=== PATIENT | male | born 1950 | race Caucasian/White ===

== ENCOUNTER 2022-06-30 16:06 | Inpatient (IN) | payer MEDICARE, BC ==
[~2022-06-30] VITALS: Ht 165.1 cm; Wt 64.1 kg
--- NOTE | 2022-06-30 17:00 | NUR ---
MOVE SHEET SUBMITTED.
[2022-06-30 17:11] LABS: BASOPHILS # (AUTO) 0.1 K/uL (0.0-0.2); BASOPHILS % (AUTO) 0.6 % (0.0-2.0); EOSINOPHILS % (AUTO) 5.9 % (0.0-6.0); HEMATOCRIT 33 % (39-51); LYMPHOCYTES # (AUTO) 0.7 K/uL (0.8-4.8); LYMPHOCYTES % (AUTO) 6.4 % (20.0-44.0); MEAN CORPUSCULAR HGB CONC 33 g/dl (31.0-36.0); MEAN CORPUSCULAR VOLUME 94 fL (80-96); MONOCYTES # (AUTO) 0.7 K/uL (0.1-1.30); MONOCYTES % (AUTO) 6.5 % (2.0-12.0); NEUTROPHILS # (AUTO) 8.7 K/uL (1.8-8.9); NEUTROPHILS % (AUTO) 80.6 % (43.0-81.0); PLATELET COUNT (AUTO) 424 K/uL (150-450); RED BLOOD CELL COUNT(AUTO) 3.55 MIL/uL (4.5-6.0); WHITE BLOOD COUNT (AUTO) 10.7 K/uL (4.3-11.0)
--- NOTE | 2022-06-30 17:23 | NUR ---
COVID SWAB TAKEN AND SENT TO THE LAB
[2022-06-30] MEDS ORDERED: SPIR25TA6 JT (17:50)
[2022-06-30] MEDS ORDERED: MULT-24 JT (17:50)
[2022-06-30] MEDS ORDERED: ATOR40TA JT (17:50)
[2022-06-30] MEDS ORDERED: BUME1TAB34 JT (17:50)
[2022-06-30] MEDS ORDERED: ASPI-1169 JT (17:50)
[2022-06-30] MEDS ORDERED: BISA10SU11 RC (17:50)
[2022-06-30] MEDS ORDERED: SERT50TA JT (17:50)
[2022-06-30] MEDS ORDERED: LAMO25TA10 JT (17:50)
[2022-06-30] MEDS ORDERED: POTA20TA29 JT (17:50)
[2022-06-30] MEDS ORDERED: IPRA12.9 IH (17:50)
[2022-06-30] MEDS ORDERED: LANS30CA56 JT (17:50)
[2022-06-30] MEDS ORDERED: CALC500T52 JT (17:50)
[2022-06-30] MEDS ORDERED: CHLO473M5 MM (17:50)
[2022-06-30] MEDS ORDERED: DOCU-141 JT (17:50)
[2022-06-30] MEDS ORDERED: ACET-868 JT (17:50)
[2022-06-30] MEDS ORDERED: CYAN250T3 JT (17:50)
[2022-06-30] MEDS ORDERED: GABA-532 JT (17:50)
[2022-06-30] MEDS ORDERED: DOXA2TAB2 JT (17:50)
[2022-06-30] MEDS ORDERED: LEVO150T8 JT (17:50)
[2022-06-30] MEDS ORDERED: MAGN400T26 JT (17:50)
[2022-06-30] MEDS ORDERED: ALLO300T2 JT (17:50)
[2022-06-30] MEDS ORDERED: LOPE2CAP JT (17:50)
[2022-06-30] MEDS ORDERED: THIA100T74 JT (17:50)
[2022-06-30 18:21] LABS: ALBUMIN 2.7 g/dL (3.4-5.0); BILIRUBIN,DIRECT 0.1 mg/dL (0.0-0.2); BILIRUBIN,TOTAL 0.2 mg/dL (0.2-1.0); CALCIUM, SERUM 9.3 mg/dL (8.5-10.1); CREATININE 1.2 mg/dL (0.6-1.3); POTASSIUM 3.6 mmol/L (3.5-5.1); TOTAL PROTEIN, SERUM 7.2 g/dL (6.4-8.2)
--- NOTE | 2022-06-30 19:08 | NUR ---
[facility] CALLED MATERIALS HANDLING COORDINATOR PAGED.
[2022-06-30] MEDS ORDERED: ACETAMINOPHEN 325 MG TABLET PO PRN ×2 (19:30→20:00)
[2022-06-30] MEDS ORDERED: MAGNESIUM HYDROXIDE 30 ML UDC PO PRN (19:30)
[2022-06-30] MEDS ORDERED: ONDANSETRON HCL/PF 4 MG/2 ML VIAL IVP PRN (19:30)
[2022-06-30] MEDS ORDERED: Z GUARD REMEDY 4 OZ OINT TP PRN (19:30)
[2022-06-30] MEDS ORDERED: MAG HYDROX/AL HYDROX/SIMETH 30 ML UDC PO PRN (19:30)
[2022-06-30] MEDS ORDERED: BISACODYL SUPP (10 MG) 10 MG/SUPP.RECT SUPP.RECT RC PRN (20:00)
--- NOTE | 2022-06-30 20:16 | NUR ---
CALLED FOR REPORT, RN NOT READY
--- NOTE | 2022-06-30 20:32 | NUR ---
Robert lopez in ED - 06/30/22 at 2033 by IGNACIO TRANSFERRED TO [id number] UNDER ACLS
--- NOTE | 2022-06-30 20:44 | NUR ---
REPORT GIVEN TO CHRISTIANE MENDOZA FOR LOPEZ
[2022-06-30] MEDS ORDERED: ALBUTEROL FS 2.5 MG/3 ML VIAL.NEB ONE (20:51)
[2022-06-30] MEDS ORDERED: ALBUTEROL FS 2.5 MG/3 ML VIAL.NEB NEB ONE (21:00)
[2022-06-30] MEDS ORDERED: LOPERAMIDE HCL (2 MG CAP) 2 MG CAPSULE GT PRN (21:00)
[2022-06-30] MEDS: GABAPENTIN 100 MG CAPSULE PEG SCH (21:00)
[2022-06-30 21:13] VITALS: BP 127/89
--- NOTE | 2022-06-30 21:13 | NUR ---
PATIENT TRANSFERRED TO [facility]
[2022-06-30] MEDS: ATORVASTATIN 40 MG TABLET PEG SCH (22:00)
[2022-06-30] MEDS: DOXAZOSIN MESYLATE (1 MG) 1 MG TABLET JT SCH (22:00)
--- NOTE | 2022-06-30 22:00 | NUR ---
TRUCK SERVICE TECHNICIAN NOTES RECEIVED PATIENT FROM ER VIA GURNEY ACCOMPANIED BY RN AND ENTRY LEVEL. ON 4LPM NASAL CANNULA, SATURATING WELL. WITH TRACHEOSTOMY PORTEX #7. NO IV ACCESS. DISLODGED J-TUBE NOTED. NPO INCLUDING MEDS. INFORMED LASER BEAM MACHINE OPERATOR DOCTOR TO SWITCH MEDS TO IV ROUTE. CALLED PHARMACIST. RE-INSERTED IV ACCESS AT RIGHT FOREARM #20, PATENT, INFUSING D5 1/2NS@ 50ML/H. FOR GI CONSULT TODAY. ORIENTED TO ROOM SET-UP. SAFETY MEASURES INITIATED. WILL CONT TO MONITOR.
--- NOTE | 2022-06-30 23:27 | NUR ---
RT NOTE PT PLACED ON TRACH COLLAR WITH COOL AEROSOL @ 28% ON 5LPM. PMV IS IN PLACE. NO RESPIRATORY DISTRESS NOTED AT THIS TIME. RN NOTIFIED.
--- NOTE | 2022-07-01 02:00 | NUR ---
RN NOTES DISCHARGE NOTED AT TRACH SITE AND AUDIBLE SECRETIONS, COUGHING WHITISH PHLEGM. SUCTIONED SECRETIONS WITH RT AT BEDSIDE. CHANGED TRACH DRESSING. TOLERATED WELL.
--- NOTE | 2022-07-01 02:07 | NUR ---
RT NOTE RN REPORTED PT REMOVED AEROSOL AND PREFERS TO BE ON 2LPM NASAL CANNULA. NO SOB NOTED. PT TOLERATING WELL.
[2022-07-01] MEDS: IV D5/0.45 NACL 1,000 ML IV PRN (03:57)
[2022-07-01] MEDS: GABAPENTIN 100 MG CAPSULE PEG SCH ×3 (05:00→21:00)
[2022-07-01 06:00] LABS: BASOPHILS # (AUTO) 0.1 K/uL (0.0-0.2); BASOPHILS % (AUTO) 1.1 % (0.0-2.0); EOSINOPHILS % (AUTO) 5.5 % (0.0-6.0); HEMATOCRIT 33 % (39-51); LYMPHOCYTES # (AUTO) 0.8 K/uL (0.8-4.8); LYMPHOCYTES % (AUTO) 6.8 % (20.0-44.0); MEAN CORPUSCULAR HGB CONC 33 g/dl (31.0-36.0); MEAN CORPUSCULAR VOLUME 94 fL (80-96); MONOCYTES # (AUTO) 0.8 K/uL (0.1-1.30); MONOCYTES % (AUTO) 7.4 % (2.0-12.0); NEUTROPHILS # (AUTO) 8.9 K/uL (1.8-8.9); NEUTROPHILS % (AUTO) 79.2 % (43.0-81.0); PLATELET COUNT (AUTO) 416 K/uL (150-450); RED BLOOD CELL COUNT(AUTO) 3.56 MIL/uL (4.5-6.0); WHITE BLOOD COUNT (AUTO) 11.3 K/uL (4.3-11.0)
[2022-07-01 06:09] LABS: CALCIUM, SERUM 9.4 mg/dL (8.5-10.1); CARBON DIOXIDE 30 mmol/L (21-32); CHLORIDE 99 mmol/L (98-107); CREATININE 1.2 mg/dL (0.6-1.3); GLUCOSE 111 mg/dL (74-106); PHOSPHORUS 3.9 mg/dL (2.5-4.9); POTASSIUM 3.6 mmol/L (3.5-5.1); SODIUM SERUM 137 mmol/L (136-145); UREA NITROGEN, BLOOD 23 mg/dL (7-18)
--- NOTE | 2022-07-01 07:26 | NUR ---
MS RN OPENING NOTE RECEIVED PT AWAKE AND RESTING IN BED. PT IS A/O X4, ABLE TO MAKE NEEDS KNOWN. PT NOTED WITH TRACH BUT PER NIGHT NURSE PT REFUSED AEROSOL AND PREFERS TO BE ON O2 VIA NASAL CANNULA, RT IS AWARE. PT IS ON O2 AT 4L/MIN VIA NASAL CANNULA, TOLERATING WELL. NO SOB NOTED. NOT IN ANY SIGN OF RESPIRATORY DISTRESS. IV ACCESS IN RFA G#20, INTACT AND PATENT WITH D5 1/2 NS AT 50ML/HR. PT NOTED WITH MALFUNCTION JTUBE AWAITING FOR GI CONSULT. SAFETY MEASURES IN PLACE: BED IN LOWEST AND LOCKED POSITION, BED RAILS UP X2, BED ALARM ON, AND CALL LIGHT WITHIN REACH. WILL CONTINUE TO MONITOR PT.
[2022-07-01 08:00] VITALS: BP 126/69
[2022-07-01] MEDS ORDERED: POTASSIUM CL. PREMIX PERIPHER. 50 ML IV SCH (09:00)
[2022-07-01] MEDS ORDERED: BUMETANIDE INJ 0.25 MG/ML VIAL IV SCH (09:00)
[2022-07-01] MEDS: THIAMINE HCL 100 MG TABLET GT SCH (09:00)
[2022-07-01] MEDS: ASPIRIN 81 MG TAB.CHEW PEG SCH (09:00)
[2022-07-01] MEDS: SERTRALINE HCL 50 MG TABLET GT SCH (09:00)
[2022-07-01] MEDS ORDERED: BUMETANIDE (1 MG) 1 MG TABLET JT SCH (09:00)
[2022-07-01] MEDS: LEVOTHYROXINE SODIUM 75 MCG TABLET PO SCH (09:00)
[2022-07-01] MEDS: MULTIVITAMINS,THERAGRAN 1 UDTAB TABLET GT SCH (09:00)
[2022-07-01] MEDS: MAGNESIUM OXIDE 400 MG TABLET GT SCH (09:00)
[2022-07-01] MEDS: DOCUSATE SODIUM 100 MG CAPSULE PO SCH (09:00)
[2022-07-01] MEDS: CALCIUM CARBONATE (1250) 500 MG TABLET GT SCH ×3 (09:00→17:00)
[2022-07-01] MEDS: LamoTRIgine 25 MG TABLET PEG SCH ×2 (09:00→17:00)
[2022-07-01] MEDS: SPIRONOLACTONE 25 MG TABLET JT SCH (09:00)
[2022-07-01] MEDS ORDERED: POTASSIUM CHLORIDE 20 MEQ TAB.PRT.SR PO SCH (09:00)
--- NOTE | 2022-07-01 09:34 | NUR ---
RN NOTE ALL MEDICATIONS VIA GTUBE/JTUBE/PO SCHEDULED AT 0900 NOT ADMINISTERED. PT IS NPO AND PT'S JTUBE IS MALFUNCTIONED. AWAITING FOR GI CONSULT.
[2022-07-01] MEDS: CHLORHEXIDINE GLUCONATE 15 ML UDC MM SCH ×2 (09:43→17:09)
[2022-07-01] MEDS: PANTOPRAZOLE 40 MG VIAL IV SCH (09:43)
--- NOTE | 2022-07-01 09:44 | NUR ---
RN NOTE CALLED AND LEFT MESSAGE TO RIVER GUARDADO NP, TO CLARIFY THE ORDER OF POTASSIUM CHLORIDE IV 10 MEQ 2 BAGS AND MADE HIM AWARE THAT PT'S POTASSIUM LEVEL IS 3.6. AWAITING FOR A CALL BACK.
--- NOTE | 2022-07-01 09:50 | NUR ---
RN NOTE PT WAS SEEN BY RIVER GUARDADO NP. PER RIVER TO DC POTASSIUM CHLORIDE 10MEQ IV 2 BAGS BECAUSE PT'S POTASSIUM LEVEL IS NORMAL. RIVER ALSO ASSESSED THE PT'S JTUBE SITE. PER RIVER TO HOLD MEDICATIONS VIA GTUBE/JTUBE AT THIS TIME.
--- NOTE | 2022-07-01 13:05 | NUR ---
RN NOTE ALL MEDICATIONS VIA GTUBE/JTUBE SCHEDULED AT 1300 NOT ADMINISTERED. PER RIVER GUARDADO NP, TO HOLD MEDICATION VIA JTUBE AT THIS TIME UNTIL SEEN BY GI DOCTOR.
[2022-07-01] MEDS ORDERED: DIATR MEGLU/DIATRIZOATE SODIUM 30 ML BOTTLE (GASTROGRAPHIN) ONE (14:40)
[2022-07-01 16:00] VITALS: BP 116/78
[2022-07-01] MEDS: IPRATROPIUM NEB FS 0.5 MG/2.5 ML AMPUL.NEB NEB PRN (16:15)
[2022-07-01] MEDS: ALBUTEROL FS 2.5 MG/3 ML VIAL.NEB NEB PRN (16:15)
[2022-07-01] MEDS: diphenhydrAMINE HCL 50 MG/ML VIAL IV PRN (17:47)
--- NOTE | 2022-07-01 17:49 | NUR ---
RN NOTE PT C/O ITCHING ALL OVER HIS BODY AND REQUESTED FOR BENADRYL. BENADRYL 25MG IVP GIVEN ORDERED PRN Q6HRS. WILL MONITOR AND REASSESS PT.
--- NOTE | 2022-07-01 18:40 | NUR ---
MS RN CLOSING NOTE PT AWAKE AND RESTING IN BED. PT IS A/O X4, ABLE TO MAKE NEEDS KNOWN. PT REMAINS ON O2 AT 4L/MIN VIA NASAL CANNULA, TOLERATING WELL. NO SOB NOTED. NOT IN ANY SIGN OF RESPIRATORY DISTRESS. IV ACCESS ON LFA G#22, INTACT AND PATENT WITH D5 1/2 NS INFUSING AT 50ML/HR. ALL NEEDS ATTENDED. KEPT CLEAN AND COMFORTABLE AT ALL TIMES. TURNED AND REPOSITIONED Q2HRS AND NEEDED. SAFETY MEASURES IN PLACE: BED IN LOWEST AND LOCKED POSITION, BED RAILS UP X2, BED ALARM ON, AND CALL LIGHT WITHIN REACH. WILL ENDORSE TO TIMEKEEPER NURSE FOR LOPEZ.
--- NOTE | 2022-07-01 19:39 | NUR ---
MS RN OPENING NOTE PT AWAKE AND RESTING IN BED. PT IS A/O X4, ABLE TO MAKE NEEDS KNOWN. PT REMAINS ON O2 AT 4L/MIN VIA NASAL CANNULA, TOLERATING WELL. NO SOB NOTED. NOT IN ANY SIGN OF RESPIRATORY DISTRESS. IV ACCESS ON LFA #22, INTACT AND PATENT WITH D5 1/2 NS INFUSING AT 50ML/HR. KEPT CLEAN AND COMFORTABLE AT ALL TIMES. SAFETY MEASURES IN PLACE: BED IN LOWEST AND LOCKED POSITION, BED RAILS UP X2, BED ALARM ON, AND CALL LIGHT WITHIN REACH. WILL CONT TO MONITOR.
[2022-07-01 20:00] VITALS: BP 142/77
[2022-07-01 20:46] LABS: BILIRUBIN,URINE NEGATIVE (NEGATIVE); COLOR,URINE YELLOW (YELLOW); LEUKOCYTE ESTERASE ,URINE 1+ (NEGATIVE); NITRITE, URINE NEGATIVE (NEGATIVE); PH,URINE 6.5 (5.0-8.0); PROTEIN,URINE TRACE mg/dl (NEGATIVE); UGLUCOSE NEGATIVE (NEGATIVE)
[2022-07-01] MEDS: ATORVASTATIN 40 MG TABLET PEG SCH (21:12)
[2022-07-01] MEDS: DOXAZOSIN MESYLATE (1 MG) 1 MG TABLET JT SCH (21:12)
[2022-07-01 22:41] LABS: BACTERIA,URINE 2+ /HPF (None Seen); RBC,URINE 0-2 /HPF (0-2); SQUAMOUS EPITHELIAL CELL,UR 0-2 /HPF (None Seen)
[2022-07-02] MEDS: IV D5/0.45 NACL 1,000 ML IV PRN ×2 (02:12→20:11)
[2022-07-02] MEDS: GABAPENTIN 100 MG CAPSULE PEG SCH ×3 (05:00→21:00)
[2022-07-02 05:51] LABS: BASOPHILS % (AUTO) 0.4 % (0.0-2.0); EOSINOPHILS % (AUTO) 5.4 % (0.0-6.0); HEMATOCRIT 34 % (39-51); LYMPHOCYTES # (AUTO) 0.8 K/uL (0.8-4.8); LYMPHOCYTES % (AUTO) 7.9 % (20.0-44.0); MEAN CORPUSCULAR HGB CONC 33 g/dl (31.0-36.0); MEAN CORPUSCULAR VOLUME 94 fL (80-96); MONOCYTES # (AUTO) 0.8 K/uL (0.1-1.30); MONOCYTES % (AUTO) 8.7 % (2.0-12.0); NEUTROPHILS # (AUTO) 7.4 K/uL (1.8-8.9); NEUTROPHILS % (AUTO) 77.6 % (43.0-81.0); PLATELET COUNT (AUTO) 405 K/uL (150-450); RED BLOOD CELL COUNT(AUTO) 3.59 MIL/uL (4.5-6.0); WHITE BLOOD COUNT (AUTO) 9.6 K/uL (4.3-11.0)
[2022-07-02] MEDS: IPRATROPIUM NEB FS 0.5 MG/2.5 ML AMPUL.NEB NEB PRN (06:10)
[2022-07-02] MEDS: ALBUTEROL FS 2.5 MG/3 ML VIAL.NEB NEB PRN (06:10)
[2022-07-02 06:12] LABS: CALCIUM, SERUM 9.3 mg/dL (8.5-10.1); CARBON DIOXIDE 28 mmol/L (21-32); CHLORIDE 101 mmol/L (98-107); CREATININE 1.1 mg/dL (0.6-1.3); GLUCOSE 126 mg/dL (74-106); PHOSPHORUS 3.9 mg/dL (2.5-4.9); POTASSIUM 3.4 mmol/L (3.5-5.1); SODIUM SERUM 138 mmol/L (136-145); UREA NITROGEN, BLOOD 22 mg/dL (7-18)
--- NOTE | 2022-07-02 06:41 | NUR ---
MS RN CLOSING NOTE PT AWAKE AND RESTING IN BED. PT IS A/O X4, ABLE TO MAKE NEEDS KNOWN. PT REMAINS ON O2 AT 4L/MIN VIA NASAL CANNULA, TOLERATING WELL. NO SOB NOTED. NOT IN ANY SIGN OF RESPIRATORY DISTRESS. SECRETIONS NOTED OVER THE TRACH, INFORMED RT FOR SUCTIONING, TOLERATED PROCEDURE WELL. IV ACCESS ON LFA #22, INTACT AND PATENT WITH D5 1/2 NS INFUSING AT 50ML/HR. KEPT CLEAN AND COMFORTABLE AT ALL TIMES. SAFETY MEASURES IN PLACE: BED IN LOWEST AND LOCKED POSITION, BED RAILS UP X2, BED ALARM ON, AND CALL LIGHT WITHIN REACH. WILL ENDORSE TO NEXT SHIFT RN FOR LOPEZ.
--- NOTE | 2022-07-02 07:26 | NUR ---
MS RN OPENING NOTE RECEIVED PT AWAKE AND RESTING IN BED. PT IS A/O X4, ABLE TO MAKE NEEDS KNOWN. PT ON O2 AT 4L/MIN VIA NASAL CANNULA, TOLERATING WELL. NO SOB NOTED. NOT IN ANY SIGN OF RESPIRATORY DISTRESS. IV ACCESS IN LFA G#22, INTACT AND PATENT WITH D5 1/2 NS AT 50ML/HR. SAFETY MEASURES IN PLACE: BED IN LOWEST AND LOCKED POSITION, BED RAILS UP X2, BED ALARM ON, KEPT HOB ELEVATED, AND CALL LIGHT WITHIN REACH. WILL CONTINUE TO MONITOR PT.
[2022-07-02 08:00] VITALS: BP_SYST 129; BP_SYST 150; BP_DIAS 79; BP_DIAS 87
[2022-07-02] MEDS: LamoTRIgine 25 MG TABLET PEG SCH ×2 (09:00→17:00)
[2022-07-02] MEDS: BUMETANIDE (1 MG) 1 MG TABLET JT SCH (09:00)
[2022-07-02] MEDS: THIAMINE HCL 100 MG TABLET GT SCH (09:00)
[2022-07-02] MEDS: SPIRONOLACTONE 25 MG TABLET JT SCH (09:00)
[2022-07-02] MEDS: ASPIRIN 81 MG TAB.CHEW PEG SCH (09:00)
[2022-07-02] MEDS: MULTIVITAMINS,THERAGRAN 1 UDTAB TABLET GT SCH (09:00)
[2022-07-02] MEDS: POTASSIUM CHLORIDE 20 MEQ TAB.PRT.SR PO SCH (09:00)
[2022-07-02] MEDS: MAGNESIUM OXIDE 400 MG TABLET GT SCH (09:00)
[2022-07-02] MEDS: LEVOTHYROXINE SODIUM 75 MCG TABLET PO SCH (09:00)
[2022-07-02] MEDS: SERTRALINE HCL 50 MG TABLET GT SCH (09:00)
[2022-07-02] MEDS: DOCUSATE SODIUM 100 MG CAPSULE PO SCH (09:00)
[2022-07-02] MEDS: CALCIUM CARBONATE (1250) 500 MG TABLET GT SCH ×3 (09:00→17:00)
[2022-07-02] MEDS: CHLORHEXIDINE GLUCONATE 15 ML UDC MM SCH ×2 (09:20→16:25)
[2022-07-02] MEDS: PANTOPRAZOLE 40 MG VIAL IV SCH (09:20)
--- NOTE | 2022-07-02 09:23 | NUR ---
RN NOTE ALL MEDICATIONS VIA GTUBE/JTUBE/PO SCHEDULED AT 0900 NOT ADMINISTERED. PT IS NPO AND PER RIVER GUARDADO NP TO HOLD ALL MEDICATIONS VIA JTUBE AT THIS TIME.
[2022-07-02] MEDS: diphenhydrAMINE HCL 50 MG/ML VIAL IV PRN (11:20)
--- NOTE | 2022-07-02 12:36 | NUR ---
RN NOTE ALL MEDICATIONS VIA GTUBE/JTUBE SCHEDULED AT 1300 NOT ADMINISTERED. PER RIVER GUARDADO NP, TO HOLD MEDICATION VIA JTUBE AT THIS TIME.
[2022-07-02 16:00] VITALS: BP 124/75
--- NOTE | 2022-07-02 19:15 | NUR ---
MS RN CLOSING NOTE PT AWAKE AND RESTING IN BED AND WATCHING TV. PT IS A/O X4, ABLE TO MAKE NEEDS KNOWN. PT ON O2 AT 2L/MIN VIA NASAL CANNULA, TOLERATING WELL. NO SOB NOTED. NOT IN ANY SIGN OF RESPIRATORY DISTRESS. IV ACCESS IN LFA G#22, INTACT AND PATENT WITH D5 1/2 NS AT 50ML/HR. ALL NEEDS ATTENDED. KEPT CLEAN AND COMFORTABLE AT ALL TIMES. SAFETY MEASURES IN PLACE: BED IN LOWEST AND LOCKED POSITION, BED RAILS UP X2, BED ALARM ON, KEPT HOB ELEVATED, AND CALL LIGHT WITHIN REACH. ENDORSED TO TECHNICAL SUPPORT ASSISTANT NURSE.
[2022-07-02 20:00] VITALS: BP 116/76
[2022-07-02] MEDS: DOXAZOSIN MESYLATE (1 MG) 1 MG TABLET JT SCH (21:21)
[2022-07-02] MEDS: ATORVASTATIN 40 MG TABLET PEG SCH (21:21)
--- NOTE | 2022-07-02 21:23 | NUR ---
RN NOTE ALL MEDICATIONS VIA GTUBE/JTUBE/PO SCHEDULED AT 2100 AND 2200 NOT ADMINISTERED. PT IS NPO AND PER RIVER GUARDADO NP TO HOLD ALL MEDICATIONS VIA JTUBE AT THIS TIME.
[2022-07-03] MEDS: diphenhydrAMINE HCL 50 MG/ML VIAL IV PRN ×2 (02:46→13:28)
--- NOTE | 2022-07-03 02:55 | NUR ---
RN NOTES: PT. RESTING IN BED. PT IS A/O X3, ABLE TO MAKE NEEDS KNOWN. PT REMAINS ON O2 AT 2L/MIN VIA NASAL CANNULA, TOLERATING WELL. NO SOB NOTED. NOT IN ANY SIGN OF RESPIRATORY DISTRESS. SECRETIONS NOTED OVER THE TRACH, INFORMED RT FOR SUCTIONING, TOLERATED PROCEDURE WELL. IV ACCESS ON LFA #22, INTACT AND PATENT WITH D5 1/2 NS INFUSING AT 50ML/HR. KEPT CLEAN AND COMFORTABLE . SAFETY MEASURES IN PLACED BED IN LOWEST AND LOCKED POSITION, BED RAILS UP X2, BED ALARM ON, AND CALL LIGHT WITHIN REACH, WILL CONTINUE WITH CARE.
[2022-07-03] MEDS: GABAPENTIN 100 MG CAPSULE PEG SCH ×3 (04:35→21:00)
[2022-07-03 05:58] LABS: BASOPHILS # (AUTO) 0.1 K/uL (0.0-0.2); BASOPHILS % (AUTO) 1.3 % (0.0-2.0); EOSINOPHILS % (AUTO) 6.8 % (0.0-6.0); HEMATOCRIT 33 % (39-51); HEMOGLOBIN 10.4 g/dL (13.5-17.5); LYMPHOCYTES # (AUTO) 0.7 K/uL (0.8-4.8); MEAN CORPUSCULAR HGB CONC 32 g/dl (31.0-36.0); MEAN CORPUSCULAR VOLUME 95 fL (80-96); MONOCYTES # (AUTO) 0.8 K/uL (0.1-1.30); MONOCYTES % (AUTO) 8.4 % (2.0-12.0); NEUTROPHILS # (AUTO) 6.9 K/uL (1.8-8.9); NEUTROPHILS % (AUTO) 75.5 % (43.0-81.0); PLATELET COUNT (AUTO) 382 K/uL (150-450); RED BLOOD CELL COUNT(AUTO) 3.43 MIL/uL (4.5-6.0); WHITE BLOOD COUNT (AUTO) 9.2 K/uL (4.3-11.0)
[2022-07-03 06:47] LABS: CALCIUM, SERUM 9.3 mg/dL (8.5-10.1); CARBON DIOXIDE 27 mmol/L (21-32); CHLORIDE 104 mmol/L (98-107); CREATININE 1.1 mg/dL (0.6-1.3); GLUCOSE 119 mg/dL (74-106); MAGNESIUM 1.9 mg/dL (1.8-2.4); PHOSPHORUS 3.5 mg/dL (2.5-4.9); POTASSIUM 3.1 mmol/L (3.5-5.1); SODIUM SERUM 142 mmol/L (136-145); UREA NITROGEN, BLOOD 20 mg/dL (7-18)
--- NOTE | 2022-07-03 07:45 | NUR ---
MS RN OPENING NOTES: RECEIVED PT ASLEEP, EASILY ROUSED, A/O X4, ABLE TO MAKE NEEDS KNOWN. PT ON O2 AT 2L/MIN VIA NASAL CANNULA, TOLERATING WELL. NO SOB OR ACUTE DISTRESS NOTED. IV ACCESS IN LFA G#22, WITH D5 1/2 NS AT 50ML/HR. NPO STATUS PENDING GI CONSULT. SAFETY MEASURES IN PLACE: BED IN LOWEST AND LOCKED POSITION, BED RAILS UP X2, BED ALARM ON, KEPT HOB ELEVATED, AND CALL LIGHT WITHIN REACH, WILL CONT WITH PLAN OF CARE DURING SHIFT.
[2022-07-03 08:00] VITALS: BP 138/80
[2022-07-03] MEDS: CALCIUM CARBONATE (1250) 500 MG TABLET GT SCH ×3 (09:00→17:00)
[2022-07-03] MEDS: SPIRONOLACTONE 25 MG TABLET JT SCH (09:00)
[2022-07-03] MEDS: LEVOTHYROXINE SODIUM 75 MCG TABLET PO SCH (09:00)
[2022-07-03] MEDS: SERTRALINE HCL 50 MG TABLET GT SCH (09:00)
[2022-07-03] MEDS: DOCUSATE SODIUM 100 MG CAPSULE PO SCH (09:00)
[2022-07-03] MEDS: BUMETANIDE (1 MG) 1 MG TABLET JT SCH (09:00)
[2022-07-03] MEDS: ASPIRIN 81 MG TAB.CHEW PEG SCH (09:00)
[2022-07-03] MEDS: POTASSIUM CHLORIDE 20 MEQ TAB.PRT.SR PO SCH (09:00)
[2022-07-03] MEDS: LamoTRIgine 25 MG TABLET PEG SCH ×2 (09:00→17:00)
[2022-07-03] MEDS: THIAMINE HCL 100 MG TABLET GT SCH (09:00)
[2022-07-03] MEDS: MULTIVITAMINS,THERAGRAN 1 UDTAB TABLET GT SCH (09:00)
[2022-07-03] MEDS: MAGNESIUM OXIDE 400 MG TABLET GT SCH (09:00)
[2022-07-03] MEDS: CHLORHEXIDINE GLUCONATE 15 ML UDC MM SCH ×2 (09:28→17:00)
[2022-07-03] MEDS: PANTOPRAZOLE 40 MG VIAL IV SCH (09:28)
[2022-07-03] MEDS: POTASSIUM CL. PREMIX PERIPHER. 50 ML IV SCH ×4 (09:29→13:15)
[2022-07-03] MEDS: IV D5/0.45 NACL 1,000 ML IV PRN (15:50)
[2022-07-03 16:00] VITALS: BP 118/75
[2022-07-03] MEDS: CEFTRIAXONE 1 G in IV D5W 50 ML IV SCH (16:22)
--- NOTE | 2022-07-03 19:33 | NUR ---
MS RN CLOSING NOTES: PT AWAKE, A/O X4, ABLE TO MAKE NEEDS KNOWN. PT ON O2 AT 2L/MIN VIA NASAL CANNULA, TOLERATING WELL. NO SOB OR ACUTE DISTRESS NOTED. IV ACCESS IN LFA G#22, WITH D5 1/2 NS AT 50ML/HR. NPO STATUS, PENDING GI CONSULT. IV MEDS GIVEN, KEPT PT CLEAN, DRY AND COMFORTABLE. SAFETY MEASURES IN PLACE: BED IN LOWEST AND LOCKED POSITION, BED RAILS UP X2, BED ALARM ON, KEPT HOB ELEVATED, AND CALL LIGHT WITHIN REACH, ENDORSED TO PM SHIFT.
[2022-07-03 21:00] VITALS: BP 127/74
[2022-07-03] MEDS: ATORVASTATIN 40 MG TABLET PEG SCH (21:18)
[2022-07-03] MEDS: DOXAZOSIN MESYLATE (1 MG) 1 MG TABLET JT SCH (21:18)
--- NOTE | 2022-07-03 21:19 | NUR ---
RN NOTE ALL MEDICATIONS VIA GTUBE/JTUBE/PO SCHEDULED AT 2100 AND 2200 NOT ADMINISTERED. PT IS NPO AND PER MD ORDERS TO HOLD ALL MEDICATIONS VIA JTUBE AT THIS TIME.
--- NOTE | 2022-07-04 00:15 | NUR ---
RN NOTES: PT. RESTING IN BED. PT IS A/O X3, ABLE TO MAKE NEEDS KNOWN. PT REMAINS ON O2 AT 2L/MIN VIA NASAL CANNULA, TOLERATING WELL. NO SOB NOTED. NOT IN ANY SIGN OF RESPIRATORY DISTRESS. IV ACCESS ON LFA #22, INTACT AND PATENT WITH D5 1/2 NS INFUSING AT 50ML/HR.NPO STATUS, PENDING GI CONSULT, KEPT CLEAN AND COMFORTABLE . SAFETY MEASURES IN PLACED BED IN LOWEST AND LOCKED POSITION, BED RAILS UP X2, BED ALARM ON, AND CALL LIGHT WITHIN REACH, WILL CONTINUE WITH CARE.
[2022-07-04] MEDS: GABAPENTIN 100 MG CAPSULE PEG SCH ×2 (04:06→14:38)
[2022-07-04 05:50] LABS: BASOPHILS % (AUTO) 0.5 % (0.0-2.0); EOSINOPHILS % (AUTO) 9.1 % (0.0-6.0); HEMATOCRIT 30 % (39-51); HEMOGLOBIN 9.9 g/dL (13.5-17.5); LYMPHOCYTES # (AUTO) 0.7 K/uL (0.8-4.8); LYMPHOCYTES % (AUTO) 8.5 % (20.0-44.0); MEAN CORPUSCULAR HGB CONC 33 g/dl (31.0-36.0); MEAN CORPUSCULAR VOLUME 95 fL (80-96); MONOCYTES # (AUTO) 0.7 K/uL (0.1-1.30); MONOCYTES % (AUTO) 8.3 % (2.0-12.0); NEUTROPHILS # (AUTO) 5.8 K/uL (1.8-8.9); NEUTROPHILS % (AUTO) 73.6 % (43.0-81.0); PLATELET COUNT (AUTO) 370 K/uL (150-450); RED BLOOD CELL COUNT(AUTO) 3.21 MIL/uL (4.5-6.0); WHITE BLOOD COUNT (AUTO) 7.9 K/uL (4.3-11.0)
[2022-07-04 06:04] LABS: CALCIUM, SERUM 9.2 mg/dL (8.5-10.1); MAGNESIUM 1.9 mg/dL (1.8-2.4); PHOSPHORUS 3.4 mg/dL (2.5-4.9); POTASSIUM 3.4 mmol/L (3.5-5.1)
[2022-07-04] MEDS: diphenhydrAMINE HCL 50 MG/ML VIAL IV PRN ×2 (06:47→14:38)
[2022-07-04 08:00] VITALS: BP 133/74
--- NOTE | 2022-07-04 08:02 | NUR ---
RN OPENING NOTE RECEIVED PATIENT IN BED, AO X 3. ABLE TO RESPONDS ALL STIMULI. RESPIRATORY EVEN AND UNLABORED ON OXYGEN AT 2Ls VIA NC. PATIENT HAS TRACH WITH COVERED CAP. IN NO ACUTE DISTRESS OBSERVED. NPO STATUS. SKIN IS WARM TO TOUCH, KEEP CLEAN/DRY. KEPT ELEVATED HOB FOR ASPIRATION PRECAUTION/ENSURE AIRWAY, AND LOWEST BED POSITIONED. BED ALARM IS ON AT ALL THE TIME FOR SAFETY. CALL LIGHT WITHIN REACH, WILL CONTINUE TO MONITOR
[2022-07-04] MEDS: PANTOPRAZOLE 40 MG VIAL IV SCH (08:43)
[2022-07-04] MEDS: CHLORHEXIDINE GLUCONATE 15 ML UDC MM SCH ×2 (08:43→17:15)
[2022-07-04] MEDS: MAGNESIUM OXIDE 400 MG TABLET GT SCH (08:52)
[2022-07-04] MEDS: MULTIVITAMINS,THERAGRAN 1 UDTAB TABLET GT SCH (08:52)
[2022-07-04] MEDS: SERTRALINE HCL 50 MG TABLET GT SCH (08:52)
[2022-07-04] MEDS: THIAMINE HCL 100 MG TABLET GT SCH (08:52)
[2022-07-04] MEDS: CALCIUM CARBONATE (1250) 500 MG TABLET GT SCH ×3 (08:52→17:15)
[2022-07-04] MEDS: ASPIRIN 81 MG TAB.CHEW PEG SCH (08:53)
[2022-07-04] MEDS: LamoTRIgine 25 MG TABLET PEG SCH ×2 (08:53→17:15)
[2022-07-04] MEDS: BUMETANIDE (1 MG) 1 MG TABLET JT SCH (08:53)
[2022-07-04] MEDS: SPIRONOLACTONE 25 MG TABLET JT SCH (08:53)
[2022-07-04] MEDS: POTASSIUM CHLORIDE 20 MEQ TAB.PRT.SR PO SCH (08:54)
[2022-07-04] MEDS: LEVOTHYROXINE SODIUM 75 MCG TABLET PO SCH (08:54)
[2022-07-04] MEDS: DOCUSATE SODIUM 100 MG CAPSULE PO SCH (08:54)
--- NOTE | 2022-07-04 09:45 | NUR ---
PATIENT REPLACED NEW G-TUBE BY DR. WILKINS. SAID "NO NEED X-RAY FOR CONFIRMATION G-TUBE PLACEMENT, AND OKAY TO RESUME TUBE FEEDING, MEDICATIONS VIA G-TUBE." NOTE AND CARRY OUT. PATIENT DENIES PAIN OR ANY DISCOMFORT, WILL CONTINUE TO MONITOR.
[2022-07-04] MEDS ORDERED: JEVITY 1.2 CAL 1,000 ML BOTTLE GT SCH (10:30)
[2022-07-04] MEDS ORDERED: JEVITY 1.2 CAL 1,000 ML BOTTLE GT PRN ×2 (10:30→14:38)
[2022-07-04] MEDS ORDERED: CEFT1VIA15 IV (14:35)
[2022-07-04] MEDS: IV D5/0.45 NACL 1,000 ML IV PRN (14:47)
[2022-07-04] MEDS ORDERED: POTASSIUM CL. PREMIX PERIPHER. 50 ML IV SCH (15:00)
[2022-07-04] MEDS ORDERED: POTASSIUM CHLORIDE 20 MEQ POWDER PACKET GT ONE (15:00)
[2022-07-04] MEDS: CEFTRIAXONE 1 G in IV D5W 50 ML IV SCH (15:10)
[2022-07-04 16:00] VITALS: BP 143/78
--- NOTE | 2022-07-04 17:47 | NUR ---
PATIENT BACK TO [facility], GIVEN REPORT NOANDA/MIDWIFE INCLUDE ABX IV AND BELL VALET TIME AT 1900.
--- NOTE | 2022-07-04 18:49 | NUR ---
RN CLOSING NOTE PATIENT RESTING IN BED. IN NO ACUTE DISTRESS OBSERVED. RESPIRATORY EVEN AND UNLABORED ON OXYGEN AT 2Ls VIA NC. NO SOB OR DIFFICULT TO BREATH OBSERVED. SKIN IS WARM TO TOUCH KEEP CLEAN/DRY. PROVIDED SKI CARE. KEPT ELEVATED HOB FOR ENSURE AIRWAY/ASPIRATION PRECAUTION. PATIENT D/C TO [facility], TECHNICAL SYSTEM ANALYST TIME 1900. CALL LIGHT WITHIN REACH, WILL ENDORSE LAWN MOWER SHARPENER.
--- NOTE | 2022-07-04 19:25 | NUR ---
DISCHARGE NOTE/ RECEIVING PATIENT IS BEING TAKEN BY EMT AT THIS TIME WHEN I CAME IN. MORNING RN YESSENIA, DISCHARGING PATIENT AND GIVING REPORT TO EMT AT THIS TIME. PATIENT IN STABLE CONDITION. NO S/S OF APPARENT DISTRESS, UNLABORED. ID BAND TAKEN OFF. IV ACCESS TAKEN OUT. BELONGINGS SIGNED FOR GIVEN TO PATIENT. DISCHARGED PACKET GIVEN TO PATIENT BY MORNING RN. PATIENT IS TO BE DISCHARGED TO [facility] PER REPORT.
[2022-07-05] MEDS ORDERED: PANTOPRAZOLE 40 MG/PACK PACK NG SCH (09:00)
== END 2022-07-04 19:40 | DRG 394 ==
LOC: ER 16:10 → MED 20:13
PROVIDERS: ADMIT Registered Nurse; ATTEND Nurse Practitioner Family
PROC: 0D20XUZ Change Feeding Device in Upper Intestinal Tract, External Approach (ICD-10-PCS; principal; 2022-07-04)
DX: K94.13 Enterostomy malfunction (principal); N39.0 Urinary tract infection, site not specified; I11.0 Hypertensive heart disease with heart failure; E03.9 Hypothyroidism, unspecified; D64.9 Anemia, unspecified; I50.9 Heart failure, unspecified; E78.5 Hyperlipidemia, unspecified; R79.89 Other specified abnormal findings of blood chemistry; F32.A Depression, unspecified; F41.9 Anxiety disorder, unspecified; R13.10 Dysphagia, unspecified; Z79.82 Long term (current) use of aspirin; Z79.899 Other long term (current) drug therapy; M19.90 Unspecified osteoarthritis, unspecified site; K26.9 Duodenal ulcer, unspecified as acute or chronic, without hemorrhage or perforation; B96.89 Other specified bacterial agents as the cause of diseases classified elsewhere
CPT/HCPCS: 31720; 36415; 71045-TC; 74018; 80048-TC; 80076-TC; 81001; 83735-TC; 84100-TC; 85025-TC; 85610-TC; 87081-TC; 87086-TC; 92526; 92611-TC; 94640-TC; 94799-TC; A4623; A7526; C9113; C9803; G0378; J0696; J1200; J3480; J3490; J7060; J7070; Q9963

== ENCOUNTER 2023-10-19 17:50 | Inpatient (IN) | payer BC, MEDICARE, OTHER ==
[2023-10-19] VITALS (13 sets, daily range): BP systolic 98–212; BP diastolic 64–130; TEMP 97.8; O2SAT 92–99
[~2023-10-19] VITALS: Ht 175.3 cm; Wt 56.7 kg
[~2023-10-19 17:50] MED LIST: ACET-868 GT; ALLO300T2 JT; ASPI-1169 JT; ATOR40TA JT; BISA10SU11 RC; BUME1TAB34 JT; CALC500T52 JT; CEFT1VIA15 IV; CHLO473M5 MM; CYAN250T3 JT; DOCU-141 JT; DOXA2TAB2 JT; GABA-532 JT; IPRA12.9 IH; LAMO25TA10 GT; LANS30CA56 GT; LEVO150T8 GT; LOPE2CAP JT; MAGN400T26 JT; MULT-24 JT; POTA20TA29 JT; SERT50TA JT; SPIR25TA6 JT; THIA100T74 JT
[2023-10-19] MEDS ORDERED: Magnesium 1GM/D5W 100ML PREMIX 100 ML IV ONE (18:12)
[2023-10-19] MEDS: methylPREDNISolone SOD SUCC 125 MG/2ML VIAL IV ONE (18:12)
[2023-10-19] MEDS ORDERED: methylPREDNISolone SOD SUCC 125 MG/2ML VIAL ONE (18:12)
[2023-10-19] MEDS: Magnesium 1GM/D5W 100ML PREMIX 200 ML IV ONE (18:15)
[2023-10-19] MEDS ORDERED: IPRATROPIUM NEB FS 0.5 MG/2.5 ML AMPUL.NEB ONE (18:16)
[2023-10-19] MEDS ORDERED: ALBUTEROL FS 2.5 MG/3 ML VIAL.NEB ONE (18:16)
[2023-10-19] MEDS: IPRATROPIUM NEB FS 0.5 MG/2.5 ML AMPUL.NEB NEB ONE (18:21)
[2023-10-19] MEDS: ALBUTEROL FS 2.5 MG/3 ML VIAL.NEB CONTNEB ONE (18:21)
[2023-10-19 18:25] LABS: BASOPHILS # (AUTO) 0.1 K/uL (0.0-0.2); BASOPHILS % (AUTO) 0.3 % (0.0-2.0); EOSINOPHILS # (AUTO) 0.7 K/uL (0.0-0.7); EOSINOPHILS % (AUTO) 4.6 % (0.0-6.0); HEMATOCRIT 44 % (39-51); HEMOGLOBIN 14.1 g/dL (13.5-17.5); LYMPHOCYTES # (AUTO) 1.8 K/uL (0.8-4.8); LYMPHOCYTES % (AUTO) 11.1 % (20.0-44.0); MEAN CORPUSCULAR HEMOGLOBIN 30 PG (26.0-33.0); MEAN CORPUSCULAR HGB CONC 32 g/dl (31.0-36.0); MEAN CORPUSCULAR VOLUME 95 fL (80-96); MONOCYTES % (AUTO) 6.3 % (2.0-12.0); NEUTROPHILS # (AUTO) 12.5 K/uL (1.8-8.9); NEUTROPHILS % (AUTO) 77.7 % (43.0-81.0); PLATELET COUNT (AUTO) 328 K/uL (150-450); RED BLOOD CELL COUNT(AUTO) 4.65 MIL/uL (4.5-6.0); WHITE BLOOD COUNT (AUTO) 16.1 K/uL (4.3-11.0)
[2023-10-19] MEDS: AZITHROMYCIN 500 MG in IV D5W 250 ML IV ONE (18:40)
[2023-10-19 19:04] LABS: CALCIUM, SERUM 9.5 mg/dL (8.5-10.1); CARBON DIOXIDE 27 mmol/L (21-32); CHLORIDE 100 mmol/L (98-107); CREATININE 1.1 mg/dL (0.6-1.3); GLUCOSE 204 mg/dL (74-106); POTASSIUM 3.8 mmol/L (3.5-5.1); SODIUM SERUM 139 mmol/L (136-145); UREA NITROGEN, BLOOD 30 mg/dL (7-18)
[2023-10-19] MEDS ORDERED: CLOP75TA15 GT (19:13)
[2023-10-19] MEDS ORDERED: TUDORZA IH (19:13)
[2023-10-19] MEDS ORDERED: ALBU18HF2 IH (19:13)
[2023-10-19] MEDS ORDERED: GABA300C GT (19:13)
[2023-10-19] MEDS ORDERED: SERT25TA GT (19:13)
[2023-10-19] MEDS ORDERED: TAMS-12 GT (19:13)
[2023-10-19] MEDS ORDERED: CETI-90 GT (19:13)
[2023-10-19] MEDS ORDERED: ASPI-1169 GT (19:13)
[2023-10-19] MEDS ORDERED: MORPHINE SULFATE INJ 2 MG/ML DISP.SYRIN IV PRN (19:30)
[2023-10-19] MEDS ORDERED: ONDANSETRON HCL/PF 4 MG/2 ML VIAL IVP PRN (19:30)
[2023-10-19] MEDS ORDERED: ACETAMINOPHEN 325 MG TABLET PO PRN (19:30)
[2023-10-19] MEDS ORDERED: ALBUTEROL FS 2.5 MG/0.5 ML VIAL.NEB NEB PRN (19:30)
[2023-10-19 19:34] LABS: ALANINE AMINOTRANSFERASE 47 U/L (12-78); ALBUMIN 3.3 g/dL (3.4-5.0); ASPARTATE AMINOTRANSFERASE 44 U/L (15-37); BILIRUBIN,DIRECT 0.1 mg/dL (0.0-0.2); BILIRUBIN,TOTAL 0.3 mg/dL (0.2-1.0); NT-PRO BNP 5604 pg/mL (0-125); TOTAL PROTEIN, SERUM 7.9 g/dL (6.4-8.2)
[2023-10-19 20:03] LABS: ALKALINE PHOSPHATASE 221 U/L (46-116)
[2023-10-19] MEDS ORDERED: CEFTRIAXONE 1GM BAG (ER ONLY) 50 ML IV ONE (20:04)
[2023-10-19] MEDS ORDERED: FUROSEMIDE 40 MG/4 ML VIAL ONE (20:04)
[2023-10-19] MEDS: CEFTRIAXONE 1GM BAG (ER ONLY) 1 GM/50 ML PIGGYBACK IV ONE (20:14)
[2023-10-19] MEDS: FUROSEMIDE 40 MG/4 ML VIAL IV ONE (20:14)
[2023-10-19 20:25] LABS: ABG BASE EXCESS -6.8 mmol/L; ABG OXYGEN SATURATION 86.5 % (92.0-98.5); ABG PCO2 78.8 mmHg (35.0-45.0); ABG PH 7.111 (7.350-7.450); ABG TOTAL HEMOGLOBIN 14.8 G/dL (13.5-18.0); COHb 0.3 % (0.5-1.5); MetHb 0.2 % (0.0-1.5); O2Hb 86.1 % (94.0-97.0); SITE, ABG Right Radial; VENT MODE, BG 12 L NRB
[2023-10-19 20:25] LABS: ABG BASE EXCESS -3.9 mmol/L; ABG OXYGEN SATURATION 99.5 % (92.0-98.5); ABG PCO2 55.4 mmHg (35.0-45.0); ABG PH 7.254 (7.350-7.450); ABG PO2 226.5 mmHg (75.0-100.0); ABG TOTAL HEMOGLOBIN 13.9 G/dL (13.5-18.0); COHb 0.3 % (0.5-1.5); MetHb 0.1 % (0.0-1.5); O2Hb 99.1 % (94.0-97.0); SITE, ABG Right Radial; VENT MODE, BG BIPAP 20/5
[2023-10-19] MEDS ORDERED: ACETAMINOPHEN 650 MG/20.3 ML UDC GT PRN (20:30)
[2023-10-19] MEDS: hydrALAZINE HCL IV 20 MG VIAL IV PRN (20:55)
[2023-10-19] MEDS: HEPARIN SODIUM, PORCINE 5000 UNITS/1 ML VIAL SQ SCH (21:12)
[2023-10-19 21:26] LABS: LACTIC ACID 3.1 mmol/L (0.4-2.0)
[2023-10-20] VITALS (31 sets, daily range): BP systolic 107–154; BP diastolic 60–105; TEMP 97.3–98.8; O2SAT 87–100
[2023-10-20] MEDS ORDERED: IPRATROPIUM/ALBUTEROL INHALER IH SCH
[2023-10-20] MEDS: IPRATROPIUM NEB FS 0.5 MG/2.5 ML AMPUL.NEB NEB SCH (02:12)
[2023-10-20] MEDS: ALBUTEROL FS 2.5 MG/3 ML VIAL.NEB NEB SCH (02:12)
[2023-10-20 04:41] LABS: HEMATOCRIT 38 % (39-51); HEMOGLOBIN 12.6 g/dL (13.5-17.5); LYMPHOCYTES # (AUTO) 0.2 K/uL (0.8-4.8); LYMPHOCYTES % (AUTO) 0.9 % (20.0-44.0); MEAN CORPUSCULAR HEMOGLOBIN 31 PG (26.0-33.0); MEAN CORPUSCULAR HGB CONC 33 g/dl (31.0-36.0); MEAN CORPUSCULAR VOLUME 95 fL (80-96); MONOCYTES # (AUTO) 0.3 K/uL (0.1-1.30); MONOCYTES % (AUTO) 1.6 % (2.0-12.0); NEUTROPHILS # (AUTO) 16.7 K/uL (1.8-8.9); NEUTROPHILS % (AUTO) 97.5 % (43.0-81.0); PLATELET COUNT (AUTO) 214 K/uL (150-450); RED BLOOD CELL COUNT(AUTO) 4.02 MIL/uL (4.5-6.0); RED CELL DISTRIBUTION WIDTH 14.3 % (11.5-15.0); WHITE BLOOD COUNT (AUTO) 17.1 K/uL (4.3-11.0)
[2023-10-20 05:05] LABS: ALANINE AMINOTRANSFERASE 40 U/L (12-78); ALBUMIN 2.9 g/dL (3.4-5.0); ALKALINE PHOSPHATASE 163 U/L (46-116); ASPARTATE AMINOTRANSFERASE 36 U/L (15-37); BILIRUBIN,TOTAL 0.3 mg/dL (0.2-1.0); CALCIUM, SERUM 9.3 mg/dL (8.5-10.1); CARBON DIOXIDE 27 mmol/L (21-32); CHLORIDE 100 mmol/L (98-107); CREATININE 1.4 mg/dL (0.6-1.3); GLUCOSE 198 mg/dL (74-106); MAGNESIUM 2.2 mg/dL (1.8-2.4); PHOSPHORUS 4.4 mg/dL (2.5-4.9); POTASSIUM 3.9 mmol/L (3.5-5.1); SODIUM SERUM 138 mmol/L (136-145); TOTAL PROTEIN, SERUM 7.4 g/dL (6.4-8.2); UREA NITROGEN, BLOOD 35 mg/dL (7-18)
[2023-10-20] MEDS ORDERED: LEVOFLOXACIN 750 MG /D5W 150ML 750 MG in PREMIX 1 EA IV SCH (06:30)
[2023-10-20] MEDS: GABAPENTIN 300 MG CAPSULE GT SCH (08:14)
[2023-10-20] MEDS: CLOPIDOGREL BISULFATE 75 MG TABLET GT SCH (08:14)
[2023-10-20] MEDS: TAMSULOSIN 0.4 MG CAP.SR.24H GT SCH (08:14)
[2023-10-20] MEDS: PANTOPRAZOLE 40 MG TABLET.DR PO SCH (08:14)
[2023-10-20] MEDS: SERTRALINE HCL 25 MG TABLET GT SCH (08:14)
[2023-10-20] MEDS: ASPIRIN 81 MG TAB.CHEW GT SCH (08:14)
[2023-10-20] MEDS: LEVOTHYROXINE SODIUM 50 MCG TABLET GT SCH (08:15)
[2023-10-20] MEDS ORDERED: AZITHROMYCIN 500 MG in IV D5W 250 ML IV SCH (09:00)
[2023-10-20] MEDS: LamoTRIgine 25 MG TABLET GT SCH (09:03)
[2023-10-20 09:18] LABS: ABG BASE EXCESS 0.1 mmol/L; ABG OXYGEN SATURATION 98.5 % (92.0-98.5); ABG PCO2 38.9 mmHg (35.0-45.0); ABG PH 7.416 (7.350-7.450); ABG PO2 115.9 mmHg (75.0-100.0); ABG TOTAL HEMOGLOBIN 13.5 G/dL (13.5-18.0); AaDO2 124.6 mmHg; COHb 0.7 % (0.5-1.5); MetHb 0.2 % (0.0-1.5); O2Hb 97.6 % (94.0-97.0); SITE, ABG Right Radial; VENT MODE, BG BIPAP 20/5
[2023-10-20] MEDS: methylPREDNISolone SOD SUCC 125 MG/2ML VIAL IV SCH (09:43)
[2023-10-20 11:13] LABS: ABG BASE EXCESS 0.5 mmol/L; ABG OXYGEN SATURATION 96.3 % (92.0-98.5); ABG PCO2 41.7 mmHg (35.0-45.0); ABG PH 7.402 (7.350-7.450); ABG PO2 83.5 mmHg (75.0-100.0); ABG TOTAL HEMOGLOBIN 13.3 G/dL (13.5-18.0); AaDO2 124.8 mmHg; COHb 0.7 % (0.5-1.5); O2Hb 95.6 % (94.0-97.0); SITE, ABG Right Radial; VENT MODE, BG 4 LPM NC
[2023-10-20] MEDS ORDERED: GLUCERNA 1.2 1,000 ML BOTTLE NG PRN (15:00)
[2023-10-20] MEDS: GLUCERNA 1.2 1,000 ML BOTTLE NG PRN (17:41)
[2023-10-20] MEDS: ZITHROMAX 500 MG/250 ML D5W IV SCH (18:12)
[2023-10-20] MEDS: CEFTRIAXONE 1 G in IV D5W 50 ML IV SCH (20:00)
[2023-10-20] MEDS: TRAZODONE 50 MG TABLET GT SCH (21:21)
[2023-10-21] VITALS (28 sets, daily range): BP systolic 105–149; BP diastolic 55–84; TEMP 97.8–98.1; O2SAT 94–100
[2023-10-21 03:51] LABS: BASOPHILS % (AUTO) 0.2 % (0.0-2.0); HEMATOCRIT 36 % (39-51); HEMOGLOBIN 11.6 g/dL (13.5-17.5); LYMPHOCYTES # (AUTO) 0.2 K/uL (0.8-4.8); LYMPHOCYTES % (AUTO) 1.3 % (20.0-44.0); MEAN CORPUSCULAR HEMOGLOBIN 31 PG (26.0-33.0); MEAN CORPUSCULAR HGB CONC 32 g/dl (31.0-36.0); MEAN CORPUSCULAR VOLUME 96 fL (80-96); MONOCYTES # (AUTO) 0.5 K/uL (0.1-1.30); MONOCYTES % (AUTO) 2.8 % (2.0-12.0); NEUTROPHILS # (AUTO) 16.8 K/uL (1.8-8.9); NEUTROPHILS % (AUTO) 95.7 % (43.0-81.0); PLATELET COUNT (AUTO) 201 K/uL (150-450); RED BLOOD CELL COUNT(AUTO) 3.73 MIL/uL (4.5-6.0); RED CELL DISTRIBUTION WIDTH 14.2 % (11.5-15.0); WHITE BLOOD COUNT (AUTO) 17.6 K/uL (4.3-11.0)
[2023-10-21 04:12] LABS: ALANINE AMINOTRANSFERASE 42 U/L (12-78); ALBUMIN 2.8 g/dL (3.4-5.0); ALKALINE PHOSPHATASE 135 U/L (46-116); ASPARTATE AMINOTRANSFERASE 52 U/L (15-37); BILIRUBIN,TOTAL 0.2 mg/dL (0.2-1.0); CALCIUM, SERUM 9.4 mg/dL (8.5-10.1); CARBON DIOXIDE 30 mmol/L (21-32); CHLORIDE 103 mmol/L (98-107); CREATININE 1.3 mg/dL (0.6-1.3); GLUCOSE 159 mg/dL (74-106); MAGNESIUM 2.5 mg/dL (1.8-2.4); PHOSPHORUS 3.3 mg/dL (2.5-4.9); POTASSIUM 4.1 mmol/L (3.5-5.1); SODIUM SERUM 140 mmol/L (136-145); TOTAL PROTEIN, SERUM 6.9 g/dL (6.4-8.2); UREA NITROGEN, BLOOD 43 mg/dL (7-18)
[2023-10-21 04:16] LABS: CREATINE KINASE, TOTAL 427 U/L (39-308)
[2023-10-21 06:20] LABS: ABG BASE EXCESS 2.4 mmol/L; ABG PCO2 41.3 mmHg (35.0-45.0); ABG PH 7.432 (7.350-7.450); ABG PO2 111.1 mmHg (75.0-100.0); ABG TOTAL HEMOGLOBIN 12.7 G/dL (13.5-18.0); AaDO2 68.7 mmHg; COHb 0.8 % (0.5-1.5); O2Hb 97.2 % (94.0-97.0); SITE, ABG Left Radial; VENT MODE, BG Nasal Cannula
[2023-10-21] MEDS: PANTOPRAZOLE 40 MG/PACK PACK GT SCH (20:35)
[2023-10-22] VITALS (18 sets, daily range): BP systolic 95–143; BP diastolic 58–86; TEMP 97.7–98.6; O2SAT 94–99
[2023-10-22 07:18] LABS: HEMATOCRIT 37 % (39-51); LYMPHOCYTES # (AUTO) 0.3 K/uL (0.8-4.8); LYMPHOCYTES % (AUTO) 1.8 % (20.0-44.0); MEAN CORPUSCULAR HEMOGLOBIN 31 PG (26.0-33.0); MEAN CORPUSCULAR HGB CONC 32 g/dl (31.0-36.0); MEAN CORPUSCULAR VOLUME 96 fL (80-96); MONOCYTES # (AUTO) 0.6 K/uL (0.1-1.30); MONOCYTES % (AUTO) 3.9 % (2.0-12.0); NEUTROPHILS # (AUTO) 15.5 K/uL (1.8-8.9); NEUTROPHILS % (AUTO) 94.3 % (43.0-81.0); PLATELET COUNT (AUTO) 210 K/uL (150-450); RED BLOOD CELL COUNT(AUTO) 3.86 MIL/uL (4.5-6.0); RED CELL DISTRIBUTION WIDTH 14.2 % (11.5-15.0); WHITE BLOOD COUNT (AUTO) 16.4 K/uL (4.3-11.0)
[2023-10-22 07:37] LABS: CALCIUM, SERUM 9.1 mg/dL (8.5-10.1); CHLORIDE 103 mmol/L (98-107); CREATININE 1.4 mg/dL (0.6-1.3); GLUCOSE 122 mg/dL (74-106); MAGNESIUM 2.8 mg/dL (1.8-2.4); PHOSPHORUS 4.5 mg/dL (2.5-4.9); POTASSIUM 3.9 mmol/L (3.5-5.1); SODIUM SERUM 143 mmol/L (136-145); UREA NITROGEN, BLOOD 51 mg/dL (7-18)
[2023-10-22 08:15] LABS: CARBON DIOXIDE 28 mmol/L (21-32)
[2023-10-22 09:12] LABS: PTH, INTACT 28 pg/mL (15-65)
[2023-10-22] MEDS ORDERED: RACEPINEPHRINE HCL 2.25% NEB 0.5 ML VIAL.NEB IH PRN (14:00)
[2023-10-22 15:09] LABS: *SPE A/G RATIO 0.7 (0.7-1.7); *SPE ALBUMIN 2.6 g/dL (2.9-4.4); *SPE ALPHA-1-GLOBULIN 0.4 g/dL (0.0-0.4); *SPE BETA GLOBULIN 0.7 g/dL (0.7-1.3); *SPE GLOBULIN, TOTAL 3.6 g/dL (2.2-3.9); *SPE M-SPIKE 0.9 g/dL (Not Observed); *SPE PROTEIN TOTAL 6.2 g/dL (6.0-8.5); *SPEGAMMA GLOBULIN 1.5 g/dL (0.4-1.8)
[2023-10-22 16:40] LABS: CREATININE, URINE 87.5 MG/DL (30.0-125.0); URINE TOTAL PROTEIN 31.2 mg/dL (0-11.9)
[2023-10-22 18:00] LABS: APPEARANCE,URINE CLEAR (CLEAR); BILIRUBIN,URINE NEGATIVE (NEGATIVE); BLOOD, URINE NEGATIVE Ery/uL (NEGATIVE); COLOR,URINE YELLOW (YELLOW); KETONES,URINE NEGATIVE (NEGATIVE); LEUKOCYTE ESTERASE ,URINE NEGATIVE (NEGATIVE); NITRITE, URINE NEGATIVE (NEGATIVE); PROTEIN,URINE NEGATIVE (NEGATIVE); UGLUCOSE NEGATIVE (NEGATIVE)
[2023-10-22] MEDS: ACETYLCYSTEINE 10% SOLN 400 MG/4 ML VIAL NEB SCH (18:19)
[2023-10-22 18:31] LABS: ADD URINE CULTURE NO; BACTERIA,URINE None seen /HPF (None Seen); RBC,URINE 0-2 /HPF (0-2); SQUAMOUS EPITHELIAL CELL,UR 0-2 /HPF (None Seen); WBC,URINE 0-2 /HPF (0-3)
[2023-10-22 18:39] LABS: EOSINOPHIL,URINE None Seen
[2023-10-23] VITALS (12 sets, daily range): BP systolic 112–146; BP diastolic 65–89; TEMP 97.5–98.6; O2SAT 95–100
[2023-10-23 08:49] LABS: HEMATOCRIT 35 % (39-51); HEMOGLOBIN 11.4 g/dL (13.5-17.5); LYMPHOCYTES # (AUTO) 0.4 K/uL (0.8-4.8); LYMPHOCYTES % (AUTO) 3.3 % (20.0-44.0); MEAN CORPUSCULAR HEMOGLOBIN 32 PG (26.0-33.0); MEAN CORPUSCULAR HGB CONC 33 g/dl (31.0-36.0); MEAN CORPUSCULAR VOLUME 96 fL (80-96); MONOCYTES # (AUTO) 0.6 K/uL (0.1-1.30); MONOCYTES % (AUTO) 5.2 % (2.0-12.0); NEUTROPHILS # (AUTO) 11.2 K/uL (1.8-8.9); NEUTROPHILS % (AUTO) 91.5 % (43.0-81.0); PLATELET COUNT (AUTO) 185 K/uL (150-450); RED BLOOD CELL COUNT(AUTO) 3.59 MIL/uL (4.5-6.0); RED CELL DISTRIBUTION WIDTH 14.2 % (11.5-15.0); WHITE BLOOD COUNT (AUTO) 12.3 K/uL (4.3-11.0)
[2023-10-23 09:45] LABS: CALCIUM, SERUM 9.3 mg/dL (8.5-10.1); CARBON DIOXIDE 33 mmol/L (21-32); CHLORIDE 105 mmol/L (98-107); CREATININE 1.4 mg/dL (0.6-1.3); GLUCOSE 112 mg/dL (74-106); MAGNESIUM 2.5 mg/dL (1.8-2.4); PHOSPHORUS 4.6 mg/dL (2.5-4.9); POTASSIUM 4.3 mmol/L (3.5-5.1); SODIUM SERUM 143 mmol/L (136-145); UREA NITROGEN, BLOOD 48 mg/dL (7-18)
[2023-10-23] MEDS: AZITHROMYCIN 250 MG TABLET GT SCH (17:30)
[2023-10-24] VITALS (12 sets, daily range): BP systolic 110–175; BP diastolic 65–97; TEMP 98–98.7; O2SAT 97–100
[2023-10-24 09:03] LABS: CALCIUM, SERUM 9.3 mg/dL (8.5-10.1); CARBON DIOXIDE 31 mmol/L (21-32); CHLORIDE 102 mmol/L (98-107); CREATININE 1.3 mg/dL (0.6-1.3); GLUCOSE 88 mg/dL (74-106); POTASSIUM 4.7 mmol/L (3.5-5.1); SODIUM SERUM 138 mmol/L (136-145); UREA NITROGEN, BLOOD 48 mg/dL (7-18)
[2023-10-25] VITALS (14 sets, daily range): BP systolic 93–119; BP diastolic 58–67; TEMP 97.3–98.8; O2SAT 96–100
[2023-10-25 08:37] LABS: CALCIUM, SERUM 8.8 mg/dL (8.5-10.1); CARBON DIOXIDE 32 mmol/L (21-32); CHLORIDE 100 mmol/L (98-107); CREATININE 1.2 mg/dL (0.6-1.3); GLUCOSE 87 mg/dL (74-106); SODIUM SERUM 138 mmol/L (136-145); UREA NITROGEN, BLOOD 44 mg/dL (7-18)
[2023-10-26] VITALS (14 sets, daily range): BP systolic 99–138; BP diastolic 60–71; TEMP 97.7–98.4; O2SAT 96–100
[2023-10-26 07:25] LABS: EOSINOPHILS # (AUTO) 0.1 K/uL (0.0-0.7); HEMATOCRIT 36 % (39-51); HEMOGLOBIN 11.8 g/dL (13.5-17.5); LYMPHOCYTES # (AUTO) 0.8 K/uL (0.8-4.8); LYMPHOCYTES % (AUTO) 6.6 % (20.0-44.0); MEAN CORPUSCULAR HEMOGLOBIN 31 PG (26.0-33.0); MEAN CORPUSCULAR HGB CONC 33 g/dl (31.0-36.0); MEAN CORPUSCULAR VOLUME 95 fL (80-96); MONOCYTES # (AUTO) 0.6 K/uL (0.1-1.30); MONOCYTES % (AUTO) 5.4 % (2.0-12.0); NEUTROPHILS # (AUTO) 10.1 K/uL (1.8-8.9); PLATELET COUNT (AUTO) 173 K/uL (150-450); RED BLOOD CELL COUNT(AUTO) 3.78 MIL/uL (4.5-6.0); RED CELL DISTRIBUTION WIDTH 13.9 % (11.5-15.0); WHITE BLOOD COUNT (AUTO) 11.6 K/uL (4.3-11.0)
[2023-10-26 08:30] LABS: CALCIUM, SERUM 8.7 mg/dL (8.5-10.1); CREATININE 1.2 mg/dL (0.6-1.3); MAGNESIUM 2.2 mg/dL (1.8-2.4); PHOSPHORUS 4.1 mg/dL (2.5-4.9)
[2023-10-26] MEDS: methylPREDNISolone SOD SUCC 125 MG/2ML VIAL IV SCH (08:50)
[2023-10-26 16:59] LABS: ANISOCYTOSIS 1+; EOSINOPHILS % (MANUAL) 1 % (0-4); LYMPHOCYTES % (MANUAL) 6 % (16-48); METAMYELOCYTES % 2 % (0-0); MONOCYTES % (MANUAL) 7 % (0-11.0); NEUTROPHILS % (MANUAL) 84 (42-76); PLATELET ESTIMATE ADEQUATE
[2023-10-27] VITALS (7 sets, daily range): BP systolic 100–113; BP diastolic 40–86; TEMP 97.7–98.6; O2SAT 94–100
[2023-10-27] MEDS ORDERED: ALBU8.5H8 INH (08:55)
[2023-10-27] MEDS ORDERED: IPRA12.9 INH (08:55)
[2023-10-27] MEDS ORDERED: IPRA0.2S49 NEB (08:55)
[2023-10-27] MEDS ORDERED: ALBU2.5V13 NEB (08:55)
[2023-10-27] MEDS ORDERED: METH4TAB3 PO (11:58)
== END 2023-10-27 12:24 | disposition home health service (06) | DRG 871 ==
LOC: ER 17:57 → ICU 19:57 → TELE-TD 10-21 18:10 → TELE1 10-26 08:44
PROVIDERS: ADMIT Internal Medicine; ATTEND Nurse Practitioner Acute Care
PROC: 5A09357 Assistance with Respiratory Ventilation, Less than 24 Consecutive Hours, Continuous Positive Airway Pressure (ICD-10-PCS; principal; 2023-10-19)
DX: A41.9 Sepsis, unspecified organism (principal); I21.A1 Myocardial infarction type 2; J15.9 Unspecified bacterial pneumonia; J96.21 Acute and chronic respiratory failure with hypoxia; J96.22 Acute and chronic respiratory failure with hypercapnia; N17.0 Acute kidney failure with tubular necrosis; I50.21 Acute systolic (congestive) heart failure; J44.1 Chronic obstructive pulmonary disease with (acute) exacerbation; J44.0 Chronic obstructive pulmonary disease with (acute) lower respiratory infection; E44.1 Mild protein-calorie malnutrition; K56.7 Ileus, unspecified; Z68.1 Body mass index [BMI] 19.9 or less, adult; Z20.822 Contact with and (suspected) exposure to COVID-19; E03.9 Hypothyroidism, unspecified; E88.09 Other disorders of plasma-protein metabolism, not elsewhere classified; F32.A Depression, unspecified; I11.0 Hypertensive heart disease with heart failure; I25.10 Atherosclerotic heart disease of native coronary artery without angina pectoris; R13.10 Dysphagia, unspecified; Z79.02 Long term (current) use of antithrombotics/antiplatelets; Z85.89 Personal history of malignant neoplasm of other organs and systems; Z92.3 Personal history of irradiation; Z87.891 Personal history of nicotine dependence; Z87.11 Personal history of peptic ulcer disease; Z93.1 Gastrostomy status
CPT/HCPCS: 31720; 36415; 36600; 71045-TC; 74018; 76770-TC; 80048-TC; 80053-TC; 80076-TC; 81001; 82550-TC; 82553; 82570-TC; 82803-TC; 82962-TC; 83605-TC; 83735-TC; 83880; 83970; 84100-TC; 84155; 84165; 84300-TC; 84484-TC; 85025-TC; 87081-TC; 92526; 92611-TC; 93307-TC; 94660; 94760-TC; 94762-TC; 94799-TC; 97112-TC; 97116-TC; 97530-TC; 99082-TC; A4223; A6403; G0378; J0360; J0456; J0696; J1644; J1940; J2930; J3475; J3490; J7030; J7050; J7060

== ENCOUNTER 2023-10-28 13:56 | Emergency (ER) | payer MEDICARE ==
[~2023-10-28] VITALS: Ht 170.2 cm; Wt 63.5 kg
[~2023-10-28 13:56] MED LIST changes: +ALBU18HF2 IH; +ALBU2.5V13 NEB; +ALBU8.5H8 INH; -ALLO300T2 JT; +ASPI-1169 GT; -ASPI-1169 JT; -ATOR40TA JT; -BISA10SU11 RC; -BUME1TAB34 JT; -CALC500T52 JT; -CEFT1VIA15 IV; +CETI-90 GT; -CHLO473M5 MM; +CLOP75TA15 GT; -CYAN250T3 JT; -DOCU-141 JT; -DOXA2TAB2 JT; -GABA-532 JT; +GABA300C GT; +IPRA0.2S49 NEB; -IPRA12.9 IH; +IPRA12.9 INH; -LOPE2CAP JT; -MAGN400T26 JT; +METH4TAB3 PO; -MULT-24 JT; -POTA20TA29 JT; +SERT25TA GT; -SERT50TA JT; -SPIR25TA6 JT; +TAMS-12 GT; -THIA100T74 JT; +TUDORZA IH
[2023-10-28] MEDS ORDERED: DIATR MEGLU/DIATRIZOATE SODIUM 30 ML BOTTLE (GASTROGRAPHIN) ONE (14:50)
[2023-10-28 16:18] VITALS: BP 121/84; TEMP 97.9; O2SAT 96
== END 2023-10-28 16:18 | disposition home or self-care (01) ==
LOC: ER 13:59
DX: K94.23 Gastrostomy malfunction (principal); I10 Essential (primary) hypertension; E78.5 Hyperlipidemia, unspecified; M19.90 Unspecified osteoarthritis, unspecified site; Z79.899 Other long term (current) drug therapy
CPT/HCPCS: 99284; 43762; 74018; Q9963

== ENCOUNTER 2023-10-29 16:07 | Emergency (ER) | payer MEDICARE ==
[~2023-10-29] VITALS: Ht 170.2 cm; Wt 63.5 kg
[2023-10-29 16:22] VITALS: TEMP 98.3
[2023-10-29] MEDS ORDERED: DIATR MEGLU/DIATRIZOATE SODIUM 30 ML BOTTLE (GASTROGRAPHIN) ONE (17:08)
[2023-10-29 18:33] VITALS: BP 122/60; O2SAT 97
== END 2023-10-29 18:33 | disposition home or self-care (01) ==
LOC: ER 16:09
DX: K94.23 Gastrostomy malfunction (principal); R13.19 Other dysphagia; I10 Essential (primary) hypertension; M19.90 Unspecified osteoarthritis, unspecified site; Z98.890 Other specified postprocedural states; E78.5 Hyperlipidemia, unspecified; Z87.39 Personal history of other diseases of the musculoskeletal system and connective tissue
CPT/HCPCS: 99284; 43762; 74018; Q9963

== ENCOUNTER 2023-12-22 12:35 | Inpatient (IN) | payer MEDICARE, OTHER ==
[~2023-12-22] VITALS: Ht 170.2 cm; Wt 59.0 kg
[2023-12-22 13:00] VITALS: O2SAT 98
[2023-12-22] MEDS ORDERED: PANTOPRAZOLE 40 MG VIAL ONE (13:04)
[2023-12-22] MEDS: IV NS 0.9% 1,000 ML BAG IV ONE ×2 (13:09→17:36)
[2023-12-22] MEDS: PANTOPRAZOLE 40 MG VIAL IV ONE (13:10)
[2023-12-22 13:38] LABS: BASOPHILS # (AUTO) 0.1 K/uL (0.0-0.2); BASOPHILS % (AUTO) 0.4 % (0.0-2.0); HEMATOCRIT 44 % (39-51); HEMOGLOBIN 14.1 g/dL (13.5-17.5); LYMPHOCYTES # (AUTO) 0.1 K/uL (0.8-4.8); LYMPHOCYTES % (AUTO) 0.7 % (20.0-44.0); MEAN CORPUSCULAR HEMOGLOBIN 31 PG (26.0-33.0); MEAN CORPUSCULAR HGB CONC 32 g/dl (31.0-36.0); MEAN CORPUSCULAR VOLUME 96 fL (80-96); MONOCYTES # (AUTO) 0.3 K/uL (0.1-1.30); MONOCYTES % (AUTO) 1.8 % (2.0-12.0); NEUTROPHILS % (AUTO) 97.1 % (43.0-81.0); PLATELET COUNT (AUTO) 217 K/uL (150-450); RED BLOOD CELL COUNT(AUTO) 4.61 MIL/uL (4.5-6.0); RED CELL DISTRIBUTION WIDTH 15.5 % (11.5-15.0); WHITE BLOOD COUNT (AUTO) 17.6 K/uL (4.3-11.0)
[2023-12-22 13:46] LABS: CALCIUM, SERUM 9.8 mg/dL (8.5-10.1); CARBON DIOXIDE 28 mmol/L (21-32); CHLORIDE 106 mmol/L (98-107); CREATININE 1.7 mg/dL (0.6-1.3); GLUCOSE 151 mg/dL (74-106); POTASSIUM 3.1 mmol/L (3.5-5.1); SODIUM SERUM 144 mmol/L (136-145); UREA NITROGEN, BLOOD 22 mg/dL (7-18)
[2023-12-22 13:53] LABS: ALANINE AMINOTRANSFERASE 28 U/L (12-78); ALBUMIN 3.5 g/dL (3.4-5.0); ALKALINE PHOSPHATASE 120 U/L (46-116); ASPARTATE AMINOTRANSFERASE 23 U/L (15-37); BILIRUBIN,DIRECT 0.2 mg/dL (0.0-0.2); BILIRUBIN,TOTAL 0.5 mg/dL (0.2-1.0); LIPASE 116 U/L (16-77); TOTAL PROTEIN, SERUM 7.6 g/dL (6.4-8.2)
[2023-12-22 14:06] LABS: LACTIC ACID 3.3 mmol/L (0.4-2.0)
[2023-12-22] MEDS: PIPERACILLIN /TAZOBACTAM 3.375 G in IV D5W 50 ML IV ONE (14:30)
[2023-12-22] MEDS ORDERED: Z GUARD REMEDY 4 OZ OINT TP PRN (16:00)
[2023-12-22] MEDS ORDERED: ONDANSETRON HCL/PF 4 MG/2 ML VIAL IVP PRN (16:00)
[2023-12-22] MEDS: PANTOPRAZOLE 80 MG in IV NS 0.9% 500 ML IV ONE (16:25)
[2023-12-22] MEDS: POTASSIUM CL. PREMIX PERIPHER. 50 ML IV SCH (16:28)
[2023-12-22] MEDS ORDERED: IPRATROPIUM NEB FS 0.5 MG/2.5 ML AMPUL.NEB NEB PRN (16:30)
[2023-12-22] MEDS ORDERED: ALBUTEROL FS 2.5 MG/0.5 ML VIAL.NEB NEB PRN (16:30)
[2023-12-22 20:00] VITALS: BP 142/113; TEMP 97.5; O2SAT 97
[2023-12-22] MEDS: ZOSYN IVPB 3.375 G in IV D5W 50ml IV SCH (21:27)
[2023-12-22] MEDS: LORAZEPAM 1 MG TABLET PO PRN (23:30)
[2023-12-23] VITALS: BP 147/74; TEMP 97.8; O2SAT 95
[2023-12-23 04:00] VITALS: BP 155/79; TEMP 98.1; O2SAT 96
[2023-12-23 06:26] LABS: BASOPHILS % (AUTO) 0.3 % (0.0-2.0); EOSINOPHILS % (AUTO) 0.4 % (0.0-6.0); HEMATOCRIT 35 % (39-51); HEMOGLOBIN 11.5 g/dL (13.5-17.5); LYMPHOCYTES # (AUTO) 0.6 K/uL (0.8-4.8); LYMPHOCYTES % (AUTO) 4.1 % (20.0-44.0); MEAN CORPUSCULAR HEMOGLOBIN 32 PG (26.0-33.0); MEAN CORPUSCULAR HGB CONC 33 g/dl (31.0-36.0); MEAN CORPUSCULAR VOLUME 95 fL (80-96); MONOCYTES # (AUTO) 0.5 K/uL (0.1-1.30); MONOCYTES % (AUTO) 3.8 % (2.0-12.0); NEUTROPHILS # (AUTO) 12.6 K/uL (1.8-8.9); NEUTROPHILS % (AUTO) 91.4 % (43.0-81.0); PLATELET COUNT (AUTO) 151 K/uL (150-450); RED BLOOD CELL COUNT(AUTO) 3.63 MIL/uL (4.5-6.0); RED CELL DISTRIBUTION WIDTH 15.5 % (11.5-15.0); WHITE BLOOD COUNT (AUTO) 13.8 K/uL (4.3-11.0)
[2023-12-23 06:36] LABS: CALCIUM, SERUM 8.3 mg/dL (8.5-10.1); CREATININE 1.1 mg/dL (0.6-1.3); MAGNESIUM 1.8 mg/dL (1.8-2.4); PHOSPHORUS 2.2 mg/dL (2.5-4.9)
[2023-12-23] MEDS: LEVOTHYROXINE SODIUM 75 MCG TABLET PO SCH (07:30)
[2023-12-23 08:00] VITALS: BP 126/80; TEMP 98.1; O2SAT 97
[2023-12-23] MEDS: POTASSIUM CL. PREMIX PERIPHER. 50 ML IV SCH (08:44)
[2023-12-23] MEDS: TAMSULOSIN 0.4 MG CAP.SR.24H GT SCH (08:53)
[2023-12-23] MEDS: LamoTRIgine 25 MG TABLET GT SCH (08:53)
[2023-12-23] MEDS: GABAPENTIN 300 MG CAPSULE GT SCH (08:54)
[2023-12-23] MEDS: SERTRALINE HCL 25 MG TABLET GT SCH (08:54)
[2023-12-23] MEDS: PANTOPRAZOLE 40 MG VIAL IV SCH (08:57)
[2023-12-23 12:46] LABS: APPEARANCE,URINE CLEAR (CLEAR); BILIRUBIN,URINE NEGATIVE (NEGATIVE); BLOOD, URINE NEGATIVE Ery/uL (NEGATIVE); COLOR,URINE YELLOW (YELLOW); KETONES,URINE NEGATIVE (NEGATIVE); LEUKOCYTE ESTERASE ,URINE NEGATIVE (NEGATIVE); NITRITE, URINE NEGATIVE (NEGATIVE); PROTEIN,URINE TRACE mg/dl (NEGATIVE); UGLUCOSE NEGATIVE (NEGATIVE); UROBILINOGEN,URINE 0.2 EU/dL (0.2)
[2023-12-23 12:48] LABS: CREATININE, URINE 68.4 MG/DL (30.0-125.0); URINE TOTAL PROTEIN 68.5 mg/dL (0-11.9)
[2023-12-23] MEDS: PIPERACILLIN /TAZOBACTAM 3.375 G in IV D5W 100 ML IV SCH (12:59)
[2023-12-23] MEDS ORDERED: IV NS 0.9% 1,000 ML BAG IV PRN (13:00)
[2023-12-23 13:06] LABS: EOSINOPHIL,URINE None Seen
[2023-12-23] MEDS ORDERED: LEVO750T46 PO (13:29)
[2023-12-23] MEDS ORDERED: Sodium Phosphate 15 MMOL in IV NS 0.9% 245 ML IV SCH (17:00)
== END 2023-12-23 18:08 | disposition hospice, home (50) | DRG 378 ==
LOC: ER 12:36 → TELE 15:05
DX: K92.2 Gastrointestinal hemorrhage, unspecified (principal); D62 Acute posthemorrhagic anemia; E44.1 Mild protein-calorie malnutrition; I50.22 Chronic systolic (congestive) heart failure; N17.9 Acute kidney failure, unspecified; E87.20 Acidosis, unspecified; R65.10 Systemic inflammatory response syndrome (SIRS) of non-infectious origin without acute organ dysfunction; R64 Cachexia; I11.0 Hypertensive heart disease with heart failure; Z93.1 Gastrostomy status; Z85.89 Personal history of malignant neoplasm of other organs and systems; Z66 Do not resuscitate; E78.5 Hyperlipidemia, unspecified; I25.10 Atherosclerotic heart disease of native coronary artery without angina pectoris; J44.9 Chronic obstructive pulmonary disease, unspecified; Z85.819 Personal history of malignant neoplasm of unspecified site of lip, oral cavity, and pharynx; M19.90 Unspecified osteoarthritis, unspecified site; Z99.81 Dependence on supplemental oxygen; I25.2 Old myocardial infarction; Z93.0 Tracheostomy status; R13.10 Dysphagia, unspecified; G56.03 Carpal tunnel syndrome, bilateral upper limbs; Z79.51 Long term (current) use of inhaled steroids; Z79.82 Long term (current) use of aspirin; Z79.02 Long term (current) use of antithrombotics/antiplatelets; Z79.899 Other long term (current) drug therapy; Z79.890 Hormone replacement therapy; Z92.3 Personal history of irradiation; E88.09 Other disorders of plasma-protein metabolism, not elsewhere classified; E83.39 Other disorders of phosphorus metabolism; D64.9 Anemia, unspecified; E03.9 Hypothyroidism, unspecified; E86.9 Volume depletion, unspecified; E87.6 Hypokalemia; M89.8X9 Other specified disorders of bone, unspecified site; Z87.891 Personal history of nicotine dependence; Z87.01 Personal history of pneumonia (recurrent); N26.1 Atrophy of kidney (terminal); K80.20 Calculus of gallbladder without cholecystitis without obstruction
CPT/HCPCS: 36415; 71045-TC; 80048-TC; 80076-TC; 82570-TC; 83605-TC; 83690-TC; 83735-TC; 84100-TC; 84300-TC; 84484-TC; 85025-TC; 86850-TC; 87040-TC; 87086-TC; A4223; A9563; C9113; G0378; J2543; J3480; J7030; J7040; J7050; J7060